=== PATIENT | male | born 1955 | race Caucasian/White ===

== ENCOUNTER 2022-03-21 10:10 | Outpatient (CLI) | payer MEDICARE, BC | END 2022-03-21 23:59 | disposition home or self-care (01) | LOC: RAD 10:10 | PROVIDERS: ATTEND Internal Medicine Cardiovascular Disease | DX: R06.02 Shortness of breath (principal); Z95.810 Presence of automatic (implantable) cardiac defibrillator | CPT/HCPCS: 71046 ==

== ENCOUNTER 2025-03-24 07:36 | Day surgery (SDC) | payer MEDICARE, BC ==
[2025-03-23 11:21] LABS: MEAN PLATELET VOLUME 9.1 FL (7.4-10.4); RED CELL DISTRIBUTION WIDTH 13.6 % (11.5-14.5)
[2025-03-23 11:34] LABS: CREATININE 1.29 MG/DL (0.60-1.10); TOTAL CARBON DIOXIDE 26.4 MMOL/L (24-32); eGFR 55 ML/MIN
[2025-03-23 11:39] LABS: APTT 23 SECONDS (22-32); INR 1.0 INR
[2025-03-24] VITALS (14 sets, daily range): BP systolic 108–144; BP diastolic 52–80; PULSE 62–85; RESP 13–24; TEMP 98.1; O2SAT 93–97
[~2025-03-24] VITALS: Ht 188 cm; Wt 106.2 kg
[2025-03-24] MEDS ORDERED: CARV12.53 PO (08:00)
[2025-03-24] MEDS ORDERED: ASPI-1674 PO (08:00)
[2025-03-24] MEDS ORDERED: LISI5TAB22 PO (08:00)
[2025-03-24] MEDS ORDERED: SPIR25TA5 PO (08:00)
[2025-03-24] MEDS ORDERED: ROSU40TA89 PO (08:00)
--- NOTE | 2025-03-24 08:06 | ELECTROCARDIOGRAPH REPORT ---
[facility] Test Date: 2025-03-24 Test Time: 08:04:21 Pat Name: MICKEY AGARWAL Department: [facility] O Patient ID: [facility]-[id number] Room: Gender: M Branch Lead: [place] : 1955 Requested By: PRAMOD CHRISTIANSON Order Number: [id number] Reading MD: Dr. MORENA Christianson Measurements Intervals [place] Rate: 67 P: 41 UT: 235 QRS: 11 QRSD: 151 T: 29 QT: 473 QTc: 500 Interpretive Statements Atrial-paced complexes Ventricular premature complex Prolonged UT interval Probable left atrial enlargement Left bundle branch block Electronically Signed On 03-24-2025 19:07:[address] MORENA Christianson Please click the below link to view image of tracing.
[2025-03-24] MEDS: sodium bicarbonate 1meq/ml syr 150 ML in dextrose 5%-water 1,000 ML IV ONE (08:52)
[2025-03-24] MEDS ORDERED: LIDOcaine 1% (10mg/ml) 2ml vial ONE (09:43)
[2025-03-24] MEDS ORDERED: iohexol 350 MG/ML 50ML vial IV ONE ×2 (09:43→11:17)
[2025-03-24] MEDS ORDERED: verapamil 2.5 mg/ml inj IV ONE (09:43)
[2025-03-24] MEDS ORDERED: heparin 1,000unit/ml 10ml vial 10 ML ONE (09:43)
[2025-03-24] MEDS ORDERED: midazolam 1 mg/ML 2ml injection ONE (09:43)
[2025-03-24] MEDS ORDERED: fentaNYL/PF 50MCG/1 ML 2ML syringe ONE (09:43)
[2025-03-24] MEDS ORDERED: nitroGLYCERIN 500mcg/5mL D5W 5 ML IV ONE (09:49)
[2025-03-24] MEDS ORDERED: heparin 25,000 UNIT/250ml bag 250 ML IV ONE (10:26)
[2025-03-24] MEDS ORDERED: clopidogrel 300mg tablet ONE (11:30)
[2025-03-24] MEDS ORDERED: HYDROcodone/acetaminophen 10/325mg tab PO PRN (12:35)
[2025-03-24] MEDS ORDERED: HYDROcodone/acetaminophen 5mg/325mg tablet PO PRN (12:35)
[2025-03-24] MEDS ORDERED: ROSU40TA PO (12:56)
[2025-03-24] MEDS ORDERED: CLOP75TA33 PO (12:56)
[2025-03-24] MEDS ORDERED: ASPI-611 PO (12:56)
--- NOTE | 2025-03-27 15:09 | CARDIOLOGY REPORT ---
DATE OF SERVICE: 03/24/2025 DICTATING PHYSICIAN: MORENA Cleveland MD CARDIAC CATHETERIZATION PRIMARY PHYSICIAN: Dr. Pura Lopez. RN MOBILE: MORENA Cleveland MD GENDER: Male. AGE: 69 years. HEIGHT: 187 cm. WEIGHT: 106.2 kg. BODY SURFACE AREA: 2.32 m2. INDICATION: The patient is a 69-year-old male with history of hypertension, hyperlipidemia, cardiomyopathy, CHF, status post AICD with exertional fatigue and shortness of breath. The patient had his coronary angiography back in [address] Hollingsworth. At that time, he had a cardiomyopathy. He had an AICD implantation. Biventricular ICD placement on 01/07/[address] Stanton. Subsequently, he needed the epicardial lead revision and implantation on 11/02/[address] Stanton. Generator change out back in 05/2017. 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 The patient has been having exertional fatigue and shortness of breath. He was noted to have ischemia. After discussing risks, benefits and alternative options, the patient underwent coronary angiography. Risks, benefits, alternative options discussed. Informed consent was obtained. The patient had ultrasound-guided radial artery visualization. A 6-Wolof sheath was put in. Post surgery access site hemostasis secured with manual compression. The patient tolerated the procedure well. COMPLICATIONS: None. PROCEDURES DONE: 1. Ultrasound-guided right radial artery visualization and access. 2. Left heart catheterization. 3. Left ventriculography. 4. Coronary cineangiography. 5. PTCA and stenting of the distal RCA 6. PTCA and stenting of the mid RCA 7. Conscious sedation of 75 minutes. FINDINGS: HEMODYNAMICS: Aortic systolic 94, diastolic 59, mean 61 mmHg. LVEDP of 10 mmHg. No significant gradient across the aortic valve. LEFT VENTRICULOGRAPHY: Overall left ventricular systolic function is normal with an LV ejection fraction of 60% to 65%. CORONARY CINEANGIOGRAPHY: Left main coronary artery is a large caliber vessel, arising from left aortic sinus and engaged with JL4 catheter from right radial approach with minimal luminal irregularities. The LAD is a medium caliber vessel arising at the bifurcation of left main coronary artery courses through the anterior interventricular groove and ends by wrapping around the apex. Proximal and mid LAD have 20% narrowing. Diagonal is a 2.25 mm caliber vessel with areas of 20% to 30% narrowing. Circumflex artery is a medium caliber with mild luminal irregularities, dominant. OM has about 60% to 70% narrowing proximally. Right coronary artery is a medium caliber, dominant vessel, arising from the right aortic sinus, courses through the right AV groove and ends at the posterior crux by dividing into PDA and posterolateral branches. Distal RCA has a focal 80% narrowing. Mid RCA has a long 80% narrowing. After discussing risks, benefits and alternative options, the patient preferred to proceed with PTCA and stenting of the RCA. Risks, benefits, and alternative options were discussed. Informed consent was obtained. A 6-Wolof XB RCA gave good support. The lesion was crossed with a PT2 moderate wire. The distal and mid lesions were angioplastied with a 2.5/12 mm Euphora balloon at 8 atmospheric, followed by 10 atmospheric pressure. The distal RCA lesion was stented with a 3.5 x 18 Resolute Bulan stent and deployed at 10, followed by 12 atmospheric pressure. The entire mid lesion was covered with a 3.5 x 38 mm Resolute Bulan stent, deployed at 12 atmospheric pressure. A short segment of the lesion proximally had to be covered with a 3.5 x 15 Resolute Bulan stent overlapping the mid stent. Post-procedure 0% with WAI 3 flow. The patient tolerated the procedure well. COMPLICATIONS: None. IMPRESSION: 1. The patient is a 69-year-old male with an ejection fraction of 60% to 65%. 2. LVEDP of 10 mmHg with no gradient across the aortic valve. 3. Left main normal. 4. Proximal mid LAD 20% narrowing. 5. Proximal OM 60% to 70% narrowing. 6. RCA distal 80% narrowing, successfully angioplastied and stented with a 3.5 x 18 Resolute Bulan stent. 7. Mid right coronary artery, long lesion 80%, successfully angioplastied and stented with 3.5 x 38 and 3.5 x 15 Resolute Tien stents in an overlapping fashion. Post-procedure, 0% with WAI 3 flow. The patient tolerated the procedure well. COMPLICATIONS: None. RECOMMENDATIONS: Recommend continued aggressive coronary risk factor modification, namely low-fat, low-cholesterol diet, maintaining ideal body weight, keeping LDL less than 55 mg % regular exercise program. MORENA Cleveland MD TID: [id number] RECEIPT: [id number] /[facility] [place] cc: Pura Lopez NP MTDD
== END 2025-03-24 17:45 | disposition home or self-care (01) ==
LOC: SSTAY O 07:36
PROVIDERS: ATTEND Internal Medicine Cardiovascular Disease
DX: R94.39 Abnormal result of other cardiovascular function study (principal); I25.119 Atherosclerotic heart disease of native coronary artery with unspecified angina pectoris; R06.00 Dyspnea, unspecified; I49.3 Ventricular premature depolarization; R94.31 Abnormal electrocardiogram [ECG] [EKG]; I44.7 Left bundle-branch block, unspecified; I11.0 Hypertensive heart disease with heart failure; I50.32 Chronic diastolic (congestive) heart failure; E78.5 Hyperlipidemia, unspecified; I42.9 Cardiomyopathy, unspecified; Z79.82 Long term (current) use of aspirin; Z79.899 Other long term (current) drug therapy; Z95.5 Presence of coronary angioplasty implant and graft; Z98.890 Other specified postprocedural states
CPT/HCPCS: 36415; 80048; 85025; 85347; 85610; 85730; 93005; 93458; 99152; 99153; A6258; A6402; C1725; C1751; C1769; C1874; C1894; C9600; J1644; J2003; J2250; J3010; J3490; J7030; J7070; Q0163; Q9967; Z7610